=== PATIENT | female | born 1950 ===

== ENCOUNTER 2024-02-10 06:16 | Day surgery (SDC) | payer MEDICARE, OTHER, SELFPAY ==
[2024-02-10] VITALS (11 sets, daily range): BP systolic 112–212; BP diastolic 53–93
[2024-02-10 08:28] LABS: Glucose - Point of Care 215 mg/dl (70-99)
[2024-02-10] MEDS: HEPARIN 5000 UNITS SC (09:04)
[2024-02-10] MEDS: NORMOSOL-R 1000 IV (09:05)
[2024-02-10] MEDS: TYLENOL 1000 MG PO (09:05)
[2024-02-10 12:37] LABS: Glucose - Point of Care 206 mg/dl (70-99)
--- NOTE | 2024-02-10 12:46 | OR.RPT ---
Operative Report
Operative Report
Preoperative diagnosis: Left lower quadrant solid mass, residual cervix status post prior supracervical hysterectomy BSO
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
Surgeon: MARJAN GREY MD
Assist: Tarah Mansfield PA-C, M. Schmuck RNFA
Anesthesia: General
Procedure:
Robotic assisted laparoscopic exploration of abdomen,
Left -sided retroperitoneal exploration and resection of mass,
Laparoscopic trachelectomy.
Repair of vaginal laceration.
TAP block
Procedure in detail: Ths patient presents for definitive management of solid left-sided pelvic mass. 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 By history
the patient has previously undergone supracervical laparoscopic hysterectomy and apparently myoma was left behind because of difficulty in the dissection and the cervix was left in situ.
She was brought to the operating room and placed in supine position, general anesthesia was administered. She was placed in lithotomy position using yellowfin stirrups and prepped on the abdomen perineum and vagina. Timeout procedure was
completed, she received Ancef and Flagyl for prophylaxis. She had received DVT prophylaxis with heparin. Chan catheter was inserted for bladder drainage. Using Conteh retractors I identified the cervix, placed sutures at 3 and 9:00 for retraction.
Cervical canal sounded to about 4 cm and a uterine manipulator with 2.5 JUSTINE ring was placed around it. Vaginal cuff insufflator was filled. Attention was turned abdominally. Veress needle was inserted in the umbilicus and pneumoperitoneum was
created up to 15 mmHg. Next a 8 mm X Xi robotic port was placed approximately 25 cm cephalad to symphysis pubis, under direct visualization 8 mm robotic ports were placed in the right and left upper quadrants as well as right and left upper abdomen.
Tap block was performed in right and left upper quadrants of the abdomen proximately 2 fingerbreadths below the costal margin with 30 cc 0.25% ropivacaine, and 10 mg of Decadron bilaterally.
The patient was placed in 30 degree Trendelenburg robotic system was docked, upper abdomen including liver stomach spleen right and left diaphragms and falciform ligament are normal. Right and left paracolic gutters are normal. Appendix is
unremarkable cecum was adherent to the right pelvis and adhesions were taken down in order to mobilize and examined previous site of oophorectomy. The right tube and ovary had been previously removed, and the left pelvis colon was mobilized and the
residual left ovarian vessels were seen leading up to a solid mass in the retroperitoneum. This was approximately 5 x 4 cm, I ligated the round ligament on the left side and explored the retroperitoneal space. Identified the left ureter. The
infundibulopelvic ligament was sealed 3 times and divided, this was followed to the mass and the mass was dissected off external iliac artery and vein as well as superior vesicle artery, the ureter was not seen in the proximity of this mass. The
mass was attached in its inferior aspect of the left side of the cervix. Cervix was elevated bladder flap was created and vesicouterine space was entered and we developed the space below the level of the vaginal apex. The vaginal fornices were
open anteriorly and posteriorly. Uterine vessels were sealed 3 times and divided. A circumferential incision was completed the cervix and the retroperitoneal mass were removed together and submitted to pathology. Vaginal apex was closed with 0
Vicryl suture ligature at both apices in a [id number] fashion for support. V-Loc suture was used to close the vagina in a bidirectional fashion. We irrigated the pelvis and there was no evidence of bleeding. There was a serosal tear of cecum
which was previously bleeding [id number] suture of 3-0 Vicryl was used to perform a seromuscular closure of the space. Laparoscopic ports were removed pneumoperitoneum was released and the robotic system was undocked. Skin incisions of all
port sites were closed with 4 Monocryl. Additional Marcaine was injected in all incisions. Chan catheter was removed at the completion of the case the vagina was examined and there was a 2 cm left-sided sulcus tear likely as a result of
extraction of the myoma vaginally. 2 [id number] sutures of 3-0 Vicryl was used to reapproximate this laceration and to establish hemostasis the vagina was irrigated and cuff is intact and no additional areas of bleeding was present there is
fist degree laceration involving right sided labia as well as perineal body these were not repaired and left intact.
Counts of instruments and needle was correct x 2. I was present and scrubbed for entire procedure as dictated above
Disposition to PACU stable extubated
Complications none
--- NOTE | 2024-02-10 13:17 | SUR.PHASEI ---
BP elevated, Dr Robles informed, no orders. Ayaz santos RN BSN.
[2024-02-10] MEDS: ZOFRAN 4 MG IV (13:47)
== END 2024-02-10 15:03 | disposition home or self-care (01) ==
LOC: SDS 06:16
PROVIDERS: ATTENDING PHYSICIAN Obstetrics & Gynecology Gynecologic Oncology
DX: D25.9 Leiomyoma of uterus, unspecified (principal); R19.00 Intra-abdominal and pelvic swelling, mass and lump, unspecified site; D26.0 Other benign neoplasm of cervix uteri
CPT/HCPCS: 57530; 88307; 82962; 86850; 86900; 86901